=== PATIENT | male | born 1985 | race Caucasian/White ===

== ENCOUNTER 2025-06-24 03:25 | Emergency (ER) | payer OTHER ==
[~2025-06-24] VITALS: Ht 180.3 cm; Wt 101.8 kg
[2025-06-24 03:40] VITALS: BP 132/107; TEMP 97.6; O2SAT 99
[2025-06-24 03:57] LABS: PLATELET COUNT, AUTOMATED 241 10^3/uL (150-450)
[2025-06-24] MEDS ORDERED: SODI1TAB PO (04:11)
[2025-06-24 04:21] LABS: CALCIUM LEVEL 9.1 MG/DL (8.5-10.1); CARBON DIOXIDE LEVEL 29 MMOL/L (20-31); CHLORIDE LEVEL 104 MMOL/L (98-107); CK-MB VALUE MASS 2.1 NG/ML (<3.6); CREATININE FOR GFR 0.71 MG/DL (0.70-1.30); GLOMERULAR FILTRATION RATE > 90.0 (>60); POTASSIUM SERUM 3.9 MMOL/L (3.5-5.1); SODIUM LEVEL 141 MMOL/L (136-145)
[2025-06-24 04:30] LABS: ACETONE/KETONE 0.15 MMOL/L (0.02-0.27); CPK CREATINE PHOSPHOKINASE 68 U/L (46-171); MB/CK RELATIVE INDEX 3.08 (< OR =4)
[2025-06-24 04:31] LABS: ATYPICAL LYMPH 8 % (0-5); EOSINOPHILS 1 % (0-3); LYMPHOCYTES 25 % (16-44); MONOCYTES 6 % (0-5); NEUTROPHILS 60 % (28-66)
[2025-06-24 04:32] LABS: PLATELET ESTIMATE NORMAL (NORMAL)
[2025-06-24 04:37] LABS: VENOUS BASE EXCESS 0.4 (-2.0-2.0); VENOUS HCO3 24.4 MMOL/L (23.0-27.0); VENOUS O2 SATURATION 98.0 % (60.0-80.0); VENOUS PARTIAL PRESSURE CO2 38.1 mmHg (38.0-50.0); VENOUS PARTIAL PRESSURE O2 108.9 mmHg (30.0-50.0); VENOUS PH 7.425 UNITS (7.330-7.430); VENOUS STANDARD HCO3 24.8 MMOL/L; VENOUS TOTAL CO2 25.6 MMOL/L (24.0-28.0)
[2025-06-24] MEDS ORDERED: AMOX875T2 PO (05:02)
== END 2025-06-24 05:13 | disposition left against medical advice (07) ==
LOC: M ED 03:25
DX: R07.9 Chest pain, unspecified (principal); I10 Essential (primary) hypertension; E11.9 Type 2 diabetes mellitus without complications; E78.5 Hyperlipidemia, unspecified; F32.A Depression, unspecified; F41.9 Anxiety disorder, unspecified; F43.10 Post-traumatic stress disorder, unspecified; Z88.8 Allergy status to other drugs, medicaments and biological substances; Z79.2 Long term (current) use of antibiotics; Z79.899 Other long term (current) drug therapy; Z53.9 Procedure and treatment not carried out, unspecified reason